=== PATIENT | female | born 1945 | race Caucasian/White ===

== ENCOUNTER 2016-06-29 09:45 | Outpatient (CLI) | payer MEDICARE | END 2016-06-29 09:46 | disposition home or self-care (01) | DX: C50.912 Malignant neoplasm of unspecified site of left female breast (principal) ==

== ENCOUNTER 2016-09-01 10:31 | Outpatient (CLI) | payer MEDICARE | END 2016-09-01 10:32 | disposition home or self-care (01) | DX: E03.9 Hypothyroidism, unspecified (principal) ==

== ENCOUNTER 2017-03-22 07:18 | Outpatient (CLI) | payer MEDICARE ==
[2017-03-22 11:39] LABS: ALBUMIN/GLOBULIN RATIO 1.3 (1.0-2.2); BILIRUBIN,TOTAL 0.7 mg/dL (0.2-1.0); BUN - BLOOD UREA NITROGEN 22 mg/dL (6-20); CALCIUM 9.2 mg/dL (8.5-10.3); CARBON DIOXIDE - CO2 29 mmol/L (21-32); CHLORIDE 100 mmol/L (101-111); CHOL/HDL RATIO 4.2 (<4.4); CHOLESTEROL 209 mg/dL; CREATININE 0.9 mg/dL (0.4-1.0); GFR - MDRD 62 (>89); GLUCOSE 85 mg/dL (70-100); HDL CHOLESTEROL 50 mg/dL; LDL/HDL RATIO 2.7 (<4.4); POTASSIUM 3.4 mmol/L (3.5-5.0); SODIUM 138 mmol/L (135-145); TRIGLYCERIDES 116 mg/dL; VLDL CHOLESTEROL 23 mg/dL
== END 2017-03-22 07:19 | disposition home or self-care (01) ==
LOC: LAB.F 07:18
PROVIDERS: ATTEND Family Medicine
DX: E78.5 Hyperlipidemia, unspecified (principal); I10 Essential (primary) hypertension; E03.9 Hypothyroidism, unspecified
CPT/HCPCS: 36415; 80053; 80061; 84443

== ENCOUNTER 2017-07-12 10:30 | Outpatient (CLI) | payer MEDICARE ==
--- NOTE | 2017-07-13 08:39 | Mammography Report ---
DIGITAL DIAGNOSTIC BILATERAL MAMMOGRAM: 07/12/2017 CLINICAL HISTORY: History of left breast cancer. COMPARISON: 06/2016, 06/2015, 12/2014, 05/2014, 08/2013, 06/2013, 01/2011. TECHNIQUE: Bilateral CC, MLO, true lateral views, right spot compression views. FINDINGS: The breasts again demonstrate scattered fibroglandular densities bilaterally. Postoperative and posttreatment changes in the left breast are stable. Coarse and punctate, typically benign calcifications are present. In the right upper inner posterior breast, there is a nodule, which persists on spot compression views, measuring 1 cm. Further evaluation with right breast ultrasound is recommended. Due to scheduling limitations, ultrasound was not performed the same day. Ultrasound is scheduled for 07/19/2017 at 11:15 a.m. IMPRESSION: INCOMPLETE EXAMINATION. RECOMMENDATION: Right breast ultrasound, scheduled for 07/19/2017 at 11:15 a.m. BIRADS category 0 - INCOMPLETE. STANDARD QUALIFYING STATEMENTS 1. This examination was reviewed with the aid of Computed-Aided Detection (CAD) . 2. A negative or benign imaging report should not delay biopsy if clinically suspicious findings are present. Consider surgical consultation if warranted. More than 5 % of cancers are not identified by imaging. 3. Dense breasts may obscure an underlying neoplasm. TD: 07/12/2017 17:10 LILO
== END 2017-07-12 10:31 | disposition home or self-care (01) ==
LOC: DI 10:30
PROVIDERS: ATTEND Internal Medicine Hematology & Oncology
DX: N63.12 Unspecified lump in the right breast, upper inner quadrant (principal)
CPT/HCPCS: 77066

== ENCOUNTER 2017-08-21 09:12 | Outpatient (CLI) | payer MEDICARE ==
--- NOTE | 2017-08-21 12:52 | Ultrasound Report ---
ULTRASOUND GUIDED CORE NEEDLE BIOPSY: 08/21/2017 CLINICAL INDICATION: Right breast nodule. TECHNIQUE: Hypoechoic 0.8 x 0.7 x 0.7 cm nodule right upper inner quadrant. FINDINGS: Informed consent was obtained. Using standard aseptic technique, both 1% buffered lidocaine and Sensorcaine were injected into the right breast for local anesthesia. A small jeffry was made in the skin with a #11 blade. A 12-gauge Celero vacuum-assisted device was used to obtain 3 specimens. A Celero marker was placed into the biopsy cavity under ultrasound guidance. The patient was taken to a separate mammography machine and a two view digital mammogram was performed, documenting the marker in the expected location and no significant postbiopsy hematoma. The wound was dressed and ice applied. The patient was observed for approximately 15 minutes, then was discharged from [facility] in good condition following instructions on wound care and obtaining biopsy results. The tissue was sent for histologic analysis. IMPRESSION: ULTRASOUND-GUIDED BIOPSY OF THE RIGHT BREAST. An addendum will be made to this report when the pathology is reviewed to establish concordance. TD: 08/21/2017 12:51
[2017-08-21] MEDS ORDERED: BUPIVACAINE 0.5%-EPI 1:200000 PF 10 ML VIAL SUBQ ONE (14:23)
[2017-08-21] MEDS ORDERED: LIDOCAINE 1% 10 ML MDV SUBQ ONE (14:23)
== END 2017-08-21 09:13 | disposition home or self-care (01) ==
LOC: DI 09:12
PROVIDERS: ATTEND Internal Medicine Hematology & Oncology
DX: C50.211 Malignant neoplasm of upper-inner quadrant of right female breast (principal); Z17.0 Estrogen receptor positive status [ER+]
CPT/HCPCS: 19083

== ENCOUNTER 2017-09-20 09:53 | Outpatient (CLI) | payer MEDICARE ==
[2017-09-20] MEDS ORDERED: GADOBUTROL 10 MMOL/10 ML SYRINGE ONE (10:34)
[2017-09-20] MEDS ORDERED: GADOBUTROL 10 MMOL/10 ML SYRINGE IVP ONE (11:13)
--- NOTE | 2017-09-20 15:03 | MRI Report ---
MRI BILATERAL BREASTS WITH AND WITHOUT CONTRAST: 09/20/2017 CLINICAL INDICATION: History of left breast cancer, status post lumpectomy, new right breast cancer. COMPARISON: MRI 07/21/2013, ultrasound 07/19/2017, diagnostic mammogram 2017. TECHNIQUE: Using a dedicated breast coil, axial precontrast STIR, T1, dynamic postcontrast axial 3-D images, axial 3-D high resolution images, and postcontrast diffusion weighted images were obtained. 8 mL of Gadavist was administered intravenously. Post- processing with dynamic contrast enhancement analysis and multiplanar reformations were performed with [employer]. FINDINGS: The breasts demonstrate no background parenchymal enhancement. RIGHT BREAST: The biopsy-proven cancer in the right inner posterior breast is seen, with biopsy marker in place. The focus of enhancement measures 1.6 x 1.0 x 0.6 cm. The enhancement demonstrates rapid uptake with plateau. The right axillary lymph nodes are morphologically normal. No skin, nipple, or chest wall involvement is seen. No multifocal or multicentric disease. LEFT: Postoperative changes are seen in the left breast and axilla. No suspicious mass or architectural distortion is identified. No abnormal enhancement is present. IMPRESSION: 1. BIOPSY-PROVEN RIGHT BREAST CANCER, MEASURING 1.6 CM MAXIMAL DIAMETER ON MRI. NO EVIDENCE OF MULTICENTRIC OR MULTIFOCAL DISEASE. MORPHOLOGICALLY NORMAL RIGHT AXILLARY LYMPH NODES. NO SKIN, CHEST WALL, OR NIPPLE INVOLVEMENT IS APPRECIATED. 2. POSTOPERATIVE CHANGES IN THE LEFT BREAST AND AXILLA. RECOMMENDATION: Surgical treatment planning. BIRADS CATEGORY 6 - KNOWN MALIGNANCY. The patient has been instructed to obtain results from Dr. Pittman in 5 business days. COMMENT: Breast MRI is a highly sensitive examination, and has a cancer detection threshold down to approximately 5 mm; however, it only has moderate specificity. Although breast MRI has a high negative predictive value, appropriate clinical and mammographic followup are always necessary. MRI may miss less angiogenic tumors; therefore, it should not be used to avoid a biopsy which is otherwise clinically indicated. Normal appearing lymph nodes may contain microscopic tumor. Due to prone positioning, the described location of findings may differ from other modalities. TD: 09/20/2017 15:02 [facility]
== END 2017-09-20 09:54 | disposition home or self-care (01) ==
LOC: DI 09:53
PROVIDERS: ATTEND Internal Medicine Hematology & Oncology
DX: C50.911 Malignant neoplasm of unspecified site of right female breast (principal)
CPT/HCPCS: A9585; C8908; 77059

== ENCOUNTER 2017-10-16 08:15 | Day surgery (SDC) | payer MEDICARE ==
[~2017-10-16 08:15] MED LIST: BUPIVACAINE 0.5%-EPI 1:200000 PF 30 ML VIAL ONE
[2017-10-16] MEDS ORDERED: ceFAZolin 2 GM/50 ML 2 GM/50 ML BAG IV ONE (09:18)
[2017-10-16] MEDS ORDERED: SCOPOLAMINE PATCH TOP ONE (09:19)
[2017-10-16] MEDS ORDERED: LACTATED RINGERS 1,000 ML IV ONE ×2 (10:31→16:02)
[2017-10-16] MEDS ORDERED: BUPIVACAINE 0.5% PF 30 ML VIAL ONE (13:14)
[2017-10-16] MEDS ORDERED: BUPIVACAINE 0.5% PF 30 ML VIAL INFIL ONE (14:30)
[2017-10-16] MEDS ORDERED: ONDANSETRON 4 MG/2 ML VIAL IVP ONE (15:11)
[2017-10-16] MEDS ORDERED: fentaNYL 100 MCG/2 ML VIAL IVP ONE (15:11)
[2017-10-16] MEDS ORDERED: GLYCOPYRROLATE 1 MG/5 ML VIAL IVP ONE (15:11)
[2017-10-16] MEDS ORDERED: PROPOFOL 200 MG/20 ML VIAL IVP ONE (15:11)
[2017-10-16] MEDS ORDERED: DEXAMETHASONE 4 MG/ML VIAL IVP ONE (15:11)
--- NOTE | 2017-10-16 16:23 | OPERATIVE REPORT ---
Operative Report - General Procedure Date: 10/16/17 Planned Procedure: RIGHT lumpectomy with preoperative needle localization and RIGHT axillary s Pre-Op Diagnosis: RIGHT breast cancer Procedure Performed: RIGHT lumpectomy with preoperative needle localization and RIGHT axillary sentinel lymph node biopsy Post Op Diagnosis: RIGHT breast cancer - Procedure Note Primary Surgeon: Jeffrey Wrigth MD Anesthesia Provider: Nancie Hassan CRNA Anesthesia Technique: General ET tube, Local (30 mL 1/2% marcaine) IV Fluids (mL): 800 Estimated Blood Loss (mL): 50 Complications: None. - Other Other Information/Narrative: OPERATIVE DESCRIPTION/REPORT: After verbal and written informed consent was obtained detailing the risks of infection, bleeding requiring transfusion with its risks, nerve injury, and , and after I met with the patient confirming the surgery and the site of the surgery, the patient was brought to the operative suite and placed supine on the operating table. I did not initial the operative site since it was defined by the localization wire. Great care was taken to avoid pressure points to prevent pressure necrosis or nerve injury. Monitoring devices were applied along with TEDs and pneumatic compressive stockings (to prevent DVT). The patient received preoperative antibiotics for surgical prophylaxis. Nancie Hassan sedated and anesthetized the patient for the entire procedure. The patient was prepped and draped in the usual sterile manner. A "time in" then confirmed that the patient was identified with 3 identifiers (name, date and medical record number), the history and physical was in the chart, the signed consent confirming the procedure was in the chart, the patient was in the correct position, the aforementioned prophylactic measures were in place or given, we had the correct personnel and equipment to complete the procedure and that anesthesia, surgery and nursing were given an opportunity to express any concerns. With the agreement of everyone in the room, we proceeded with the operation. After anesthetizing the skin with 1/2% Marcaine, a transverse incision was made at the inferior axillary hairline. Dissection using a combination of Bovie electrocautery and Metzenbaum scissors was used to dissect down to the fascia and open the fascia overlying axilla proper. Guidance was provided with the gamma probe. Gentle dissection using traction and counter-traction with Schnitz demonstrated the sentinel node clearly. The in vivo 10 second count was 7688. Traction and counter-traction allowed the lymph node to be removed without disrupting the capsule. Unfortunately with the removal there was still tissue inferior to this that was just as "hot." This was similarly excised and now the ex vivo count of both specimens was 6842. Examination of the axilla with the probe did not reveal any area that was even remotely as "hot" as the sentinel lymph node that had been removed. Consequently, the sentinel lymph node was sent to pathology. Copious water lavage was used to remove any debris , and hemostasis was obtained with Bovie electrocautery. The subcutaneous tissue was approximated using an interrupted 2-0 Vicryl and the skin incision was approximated with 4-0 Monocryl in a running subcuticular manner. Attention was directed to the breast lesion. After the skin overlying the needle/wire tip was anesthetized using % Marcaine, the skin overlying the tip of the needle was incised in a curvilinear fashion. Dissection down to the needle tip was performed using a combination of Metzenbaum scissors and Bovie electrocautery. Every attempt was made to get approximately 1 cm of normal tissue around the lesion. The wire was released and the lesion having been excised were removed from the wound and sent to radiology for confirmation of excision. The specimen was marked with a long stitch laterally, a short stitch superiorly, and a double stitch deep. As the specimen was being placed in the transport cannister the deep stitch was dislodged and I replaced this stitch orienting the specimen as best as I could. Meticulous hemostasis was obtained using Bovie electrocautery. Once radiology called and confirmed complete excision of the mass, the subcutaneous tissue were approximated using a 3-0 Vicryl in an interrupted manner, and the skin incision was approximated with 4- 0 Monocryl in a subcuticular fashion. Both incisions and both subcutaneous areas were again injected with 1/2% Marcaine. The prep was washed off and benzoin and steristrips were placed on the incision. At this point a time out was performed that confirmed that all the counts were correct, the procedure that was performed, the blood loss, the urine output, the IV fluids administered, and the patients condition. Dressings were applied. Having tolerated the procedure well, the patient was subsequently extubated and taken to recovery room in good and stable condition. [employer] disclaimer: This document was created in part using voice recognition technology. Because of the inherent limitations of the system ([employer]'s Dragon Dictate user manual states that the licensee understands that speech recognition is a statistical process and that recognition errors are inherent in the process), occasional same sounding word substitutions and grammatical errors do occur and persist despite proofreading. Please read this document for context.
[2017-10-16 17:52] VITALS: BP 146/75
== END 2017-10-16 08:16 | disposition home or self-care (01) ==
LOC: SDS 08:15
PROVIDERS: ATTEND Surgery
PROC: 07B50ZX Excision of Right Axillary Lymphatic, Open Approach, Diagnostic (ICD-10-PCS; 2017-10-16)
PROC: 0HBT0ZZ Excision of Right Breast, Open Approach (ICD-10-PCS; principal; 2017-10-16 14:47)
DX: C50.911 Malignant neoplasm of unspecified site of right female breast (principal); Z17.0 Estrogen receptor positive status [ER+]; Z79.82 Long term (current) use of aspirin; I10 Essential (primary) hypertension
CPT/HCPCS: 19281; 19301; 38500; 76098; 78195; A9541; J0690; J3490; J7120; 88307

== ENCOUNTER 2017-10-16 09:27 | Outpatient (CLI) | payer MEDICARE ==
--- NOTE | 2017-10-16 11:00 | Nuclear Medicine Report ---
RIGHT BREAST INJECTION FOR SENTINEL LYMPH NODE IDENTIFICATION: 10/16/2017 CLINICAL INDICATION: Right breast cancer. FINDINGS: 1.3 mCi of technetium-99m filtered sulfur colloid in buffered lidocaine was injected subareolarly into the right breast. Anterior imaging confirms right axillary uptake. IMPRESSION: SUCCESSFUL RIGHT BREAST INJECTION FOR SENTINEL LYMPH NODE IDENTIFICATION. TD: 10/16/2017 10:29
[2017-10-16] MEDS ORDERED: BUPIVACAINE 0.5%-EPI 1:200000 PF 30 ML VIAL SUBQ ONE ×2 (16:09)
[2017-10-16] MEDS ORDERED: BUFFERED LIDOCAINE 10 ML SYRINGE IU ONE ×2 (16:09)
--- NOTE | 2017-10-16 17:54 | Mammography Report ---
REVISED: REPORT ORIG. SIGNED ON 10/17/2017@0846; ORDERS LINKED ON 2017jll RIGHT BREAST WIRE LOCALIZATION WITH MAMMOGRAPHIC GUIDANCE: 10/16/2017 CLINICAL INDICATION: Biopsy proven right breast cancer at the 3 o'clock position. FINDINGS: Informed consent was obtained. Using standard aseptic technique, both 1% buffered lidocaine and Sensorcaine were injected into the right breast for local anesthesia. Under mammographic guidance, a 5 cm [place] wire was placed at the site of concern. Two mammographic views were obtained to confirm the position of the wire in relation to the target lesion. The wire was secured, and the patient was sent to the operating room in stable condition. Specimen radiograph: A magnified view of the breast biopsy specimen demonstrates that the lesion, biopsy marker, and wire are included, with the marker at G6. Dr. Wright was informed by telephone. IMPRESSION: RIGHT MAMMOGRAPHICALLY GUIDED WIRE LOCALIZATION. PATHOLOGY RESULTS PENDING AT THIS TIME. TD: 10/16/2017 16:08 LILO
== END 2017-10-16 09:28 | disposition home or self-care (01) ==
LOC: DI 09:27 → SDS 09:28
PROVIDERS: ATTEND Surgery
DX: C50.911 Malignant neoplasm of unspecified site of right female breast (principal)
CPT/HCPCS: 19281; 76098; 78195; A9541

== ENCOUNTER 2017-12-28 07:40 | Outpatient (CLI) | payer MEDICARE ==
[2017-12-28 11:43] LABS: BILIRUBIN,URINE NEGATIVE (NEGATIVE); GLUCOSE, URINE (UA) NEGATIVE (NEGATIVE); KETONES,URINE (UA) NEGATIVE (NEGATIVE); LEUKOCYTE ESTERASE, URINE NEGATIVE (NEGATIVE); NITRITE,URINE NEGATIVE (NEGATIVE); OCCULT BLOOD,URINE NEGATIVE (NEGATIVE); PH,URINE 6.5 PH (5.0-7.5); PROTEIN,URINE NEGATIVE (NEGATIVE); UROBILINOGEN,URINE 0.2 (NORMAL) E.U./dL (NORMAL)
[2017-12-28 11:59] LABS: BACTERIA,URINE None Seen /HPF (None Seen); CLARITY,URINE CLEAR (CLEAR); RBC,URINE 0-5 /HPF (0-5); SQUAMOUS EPITHELIAL CELL,UR RARE Squamous (<= Few)
[2017-12-28 12:00] LABS: ALBUMIN 3.7 g/dL (3.2-5.5); ALBUMIN/GLOBULIN RATIO 1.1 (1.0-2.2); ALKALINE PHOSPHATASE 65 IU/L (42-121); ALT ALANINE AMINOTRANSFERASE 18 IU/L (10-60); AST ASPARTATE AMINOTRANSFERASE 20 IU/L (10-42); BILIRUBIN,TOTAL 0.7 mg/dL (0.2-1.0); BUN - BLOOD UREA NITROGEN 16 mg/dL (6-20); CALCIUM 9.1 mg/dL (8.5-10.3); CARBON DIOXIDE - CO2 29 mmol/L (21-32); CHLORIDE 101 mmol/L (101-111); CHOL/HDL RATIO 3.9 (<4.4); CHOLESTEROL 208 mg/dL; CREATININE 0.7 mg/dL (0.4-1.0); GFR - MDRD 82 (>89); GLUCOSE 85 mg/dL (70-100); HDL CHOLESTEROL 54 mg/dL; LDL CHOLESTEROL,CALCULATED 137 mg/dL; LDL/HDL RATIO 2.5 (<4.4); SODIUM 139 mmol/L (135-145); VLDL CHOLESTEROL 17 mg/dL
== END 2017-12-28 07:41 | disposition home or self-care (01) ==
LOC: LAB.F 07:40
PROVIDERS: ATTEND Family Medicine
DX: E78.5 Hyperlipidemia, unspecified (principal); M81.0 Age-related osteoporosis without current pathological fracture; I10 Essential (primary) hypertension; E03.9 Hypothyroidism, unspecified
CPT/HCPCS: 36415; 80053; 80061; 81001; 83721; 84443

== ENCOUNTER 2018-08-13 09:46 | Outpatient (CLI) | payer MEDICARE ==
--- NOTE | 2018-08-13 11:01 | Mammography Report ---
Reason: L BREAST CANCER Procedure Date: 08/13/2018 Accession Number: [id number] / [id number] Procedure: LOGAN - Diagnostic Dig Bilat CPT Code: FULL RESULT: EXAM: Diagnostic Dig Bilat DATE: 08/13/2018 10:50 AM CLINICAL HISTORY: History of treated bilateral breast cancer the left in 2012 the right in 2017. No reported family history of breast cancer. Post lumpectomy surveillance protocol. TECHNIQUE: Bilateral CC and MLO views were obtained. Full field lateral views bilaterally. Bilateral spot compression and magnification lumpectomy sites. COMPARISON: 10/16/2017 through 12/29/2014 FINDINGS: The breasts demonstrate scattered fibroglandular densities bilaterally. The exam is mildly technically limited due to patient and tissue mobility limitations. Best possible imaging was obtained. Right breast: There are stable expected changes status post lumpectomy from the medial breast. There is anterior skin thickening and mild trabecular thickening consistent with post treatment changes. No suspicious masses, calcifications or areas of nonoperative distortion. Left breast: There are stable operative changes status post posterior medial lumpectomy. The entirety of the operative bed cannot be included mammographically due to positioning. There are no suspicious masses, calcifications or areas of nonoperative distortion. IMPRESSION: Right breast: Stable expected post lumpectomy changes under surveillance protocol. Benign. BI-RADS Category 2. Recommend diagnostic surveillance mammogram in 6 months per post lumpectomy protocol. Left breast: Stable post lumpectomy changes completing surveillance protocol. Benign. BI-RADS Category 2. Recommend return to annual screening mammography. BI-RADS CATEGORY 2: Benign findings STANDARD QUALIFYING STATEMENTS: 1. This examination was not reviewed with the aid of Computer-Aided Detection (CAD). 2. A negative or benign imaging report should not preclude biopsy if clinically suspicious findings are present. 3. Dense breasts may obscure an underlying neoplasm. 4. This examination was reviewed with the aid of 3D breast imaging (tomosynthesis).
== END 2018-08-13 09:47 | disposition home or self-care (01) ==
LOC: DI 09:46
PROVIDERS: ATTEND Internal Medicine Hematology & Oncology
DX: C50.912 Malignant neoplasm of unspecified site of left female breast (principal)
CPT/HCPCS: 77066

== ENCOUNTER 2019-01-01 11:44 | Outpatient (CLI) | payer MEDICARE ==
[2019-01-01 17:47] LABS: BASOPHILS # (AUTO) 0.1 10^3/uL (0.0-0.1); BASOPHILS % (AUTO) 0.7 %; EOSINOPHILS # (AUTO) 0.6 10^3/uL (0.0-0.7); EOSINOPHILS % (AUTO) 4.8 %; HGB - HEMOGLOBIN 14.5 g/dL (12.0-16.0); LYMPHOCYTES # (AUTO) 2.9 10^3/uL (1.5-3.5); LYMPHOCYTES % (AUTO) 23.5 %; MEAN CORPUSCULAR HEMOGLOBIN 29.5 pg (27.0-31.0); MEAN CORPUSCULAR HGB CONC 33.8 g/dL (32.0-36.0); MEAN CORPUSCULAR VOLUME 87.4 fL (81.0-99.0); MEAN PLATELET VOLUME 9.5 fL (7.9-10.8); MONOCYTES # (AUTO) 0.7 10^3/uL (0.0-1.0); MONOCYTES % (AUTO) 5.4 %; NEUTROPHILS % (AUTO) 65.2 %; PLT - PLATELET COUNT 304 10^3/uL (130-450); RED BLOOD COUNT 4.91 10^6/uL (4.20-5.40); RED CELL DISTRIBUTION WIDTH 13.2 % (12.0-15.0); WHITE BLOOD COUNT 12.3 x10^3/uL (4.8-10.8)
[2019-01-01 18:11] LABS: ALBUMIN 4.2 g/dL (3.2-5.5); ALBUMIN/GLOBULIN RATIO 1.3 (1.0-2.2); ALKALINE PHOSPHATASE 71 IU/L (42-121); ALT ALANINE AMINOTRANSFERASE 19 IU/L (10-60); AST ASPARTATE AMINOTRANSFERASE 21 IU/L (10-42); BILIRUBIN,TOTAL 0.8 mg/dL (0.2-1.0); BUN - BLOOD UREA NITROGEN 19 mg/dL (6-20); CALCIUM 9.7 mg/dL (8.5-10.3); CARBON DIOXIDE - CO2 28 mmol/L (21-32); CHLORIDE 102 mmol/L (101-111); CHOL/HDL RATIO 4.4 (<4.4); CHOLESTEROL 215 mg/dL; CREATININE 0.7 mg/dL (0.4-1.0); GFR - MDRD 82 (>89); GLUCOSE 89 mg/dL (70-100); HDL CHOLESTEROL 49 mg/dL; LDL CHOLESTEROL,CALCULATED 142 mg/dL; LDL/HDL RATIO 2.9 (<4.4); SODIUM 140 mmol/L (135-145); TOTAL PROTEIN 7.4 g/dL (6.7-8.2); VLDL CHOLESTEROL 24 mg/dL
== END 2019-01-01 11:45 | disposition home or self-care (01) ==
LOC: LAB.S 11:44
PROVIDERS: ATTEND Physician Assistant Medical
DX: E78.5 Hyperlipidemia, unspecified (principal); E03.9 Hypothyroidism, unspecified; I10 Essential (primary) hypertension; B35.4 Tinea corporis; L98.9 Disorder of the skin and subcutaneous tissue, unspecified
CPT/HCPCS: 36415; 80053; 80061; 83721; 84443; 85025

== ENCOUNTER 2019-01-14 09:49 | Outpatient (CLI) | payer MEDICARE ==
--- NOTE | 2019-01-15 08:34 | DEXA Report ---
Reason: POST MENOPAUSAL Procedure Date: 01/14/2019 Accession Number: [id number] / [id number] Procedure: DEX - Dexa Spine and/or Hip CPT Code: FULL RESULT: EXAM: Dexa Spine and/or Hip DATE: 01/14/2019 10:30 AM CLINICAL HISTORY: POST MENOPAUSAL TECHNIQUE: Dual energy x-ray absorptiometry (DXA) was performed on a WUT System. Regions measured are the AP Spine, femoral neck, and if needed forearm. COMPARISON: 12/26/2017. In accordance with the International Society for Clinical Densitometry (ISCD) guidelines, data from previous exams may be reanalyzed using current recommendations and techniques. This is done to allow a more accurate basis for comparison with the current study. FINDINGS: The data for the lumbar spine is as follows: BMD (g/cm/cm) T-SCORE Z-SCORE REGION L1 0.973 -1.3 0.2 L2 1.089 -0.9 0.6 L3 0.975 -1.9 -0.4 L4 0.926 -2.3 -0.8 TOTAL 0.986 -1.6 -0.1 NOTE: All evaluable vertebrae are used for classification The data for the hip is as follows: BMD (g/cm/cm) T-SCORE Z-SCORE REGION Neck 1.120 0.6 2.3 TOTAL 1.085 0.6 2.1 NOTE: The femoral neck or total proximal femur, whichever is lowest, is used for classification. DXA RESULTS SUMMARY: Spine SCAN DATE A[age] BMD CHANGE VS CHANGE VS PREVIOUS PREVIOUS % 01[age]14/2019 [age] 0.89 0.048* 5.1* 12/26/2017 [age] 0[age]938 * Denotes significant change at the 95% confidence level. Denotes dissimilar scan types or analysis methods. DXA RESULTS SUMMARY: Hip SCAN DATE [age]GE BMD CHANGE VS CHANGE VS PREVIOUS PREVIOUS % [birth year][age][birth year]/2019 [age] 1.085 0.004 0.4 12/26[birth year]2017 [age] 1.081 * Denotes significant change at the 95% confidence level. Denotes dissimilar scan types or analysis methods. IMPRESSION: THE WHO CLASSIFICATION BASED ON THE INTERNATIONAL REFERENCE STANDARD IS OSTEOPENIA. THE FRACTURE RISK IS INCREASED. RECOMMENDATION: Patients with diagnosis of osteoporosis or osteopenia should have regular bone mineral density assessment. For those eligible for Medicare, routine testing is allowed once every 2 years. Testing frequency can be increased for patients who have rapidly progressing disease or for those who are receiving medical therapy to restore bone mass. COMMENT: World Health Organization (WHO) definitions for osteoporosis and osteopenia: NORMAL BMD: T-score at -1.0 or higher, fracture risk is low OSTEOPENIA BMD: T-score between -1.0 and -2.5, fracture risk is increased. OSTEOPOROSIS BMD: T-score at -2.5 or lower, fracture risk is high. National Osteoporosis Foundation recommends: 1. Obtain adequate dietary calcium (at least 1200 mg per day) and vitamin D (400-800 international units per day). 2. Participate, as appropriate, in regular weightbearing and muscle-strengthening exercise. 3. Avoid tobacco use and reduce alcohol and caffeine intake. 4. For more detailed information see the website at www.NOF.org.
== END 2019-01-14 09:50 | disposition home or self-care (01) ==
LOC: DI 09:49
DX: M85.88 Other specified disorders of bone density and structure, other site (principal)
CPT/HCPCS: 77080

== ENCOUNTER 2019-01-14 09:50 | Outpatient (CLI) | payer MEDICARE ==
--- NOTE | 2019-01-14 16:07 | Mammography Report ---
Reason: RT BREAST CA Procedure Date: 01/14/2019 Accession Number: [id number] / [id number] Procedure: LOGAN - Diagnostic Dig RT CPT Code: FULL RESULT: EXAM: Diagnostic Dig RT DATE: 01/14/2019 11:04 AM CLINICAL HISTORY: Diagnostic examination. History of right and left breast cancer status post lumpectomy in October 2017 and left breast lumpectomy in 2013. TECHNIQUE: (R) - Right CC and MLO views were obtained. Right spot CC, cleavage, right spot MLO, right ML and right spot ML images are obtained. COMPARISON: 08/13/2018 through 12/21/2014. PARENCHYMAL PATTERN: (A) - The breast(s) demonstrate(s) scattered fibroglandular densities. FINDINGS: Postlumpectomy changes are again seen in the right breast, the site of the previous cancer is again not fully included in the [id number] despite best attempts, likely due to postsurgical configuration. Skin thickening appears essentially unchanged. There are no suspicious masses, calcifications, or areas of distortion. IMPRESSION: Probably Benign. BI-RADS category 3. RECOMMENDATION: (6MOS) - Recommend 6 month follow-up exam. BI-RADS CATEGORY: (3) - Probably Benign. STANDARD QUALIFYING STATEMENTS: 1. This examination was not reviewed with the aid of Computer-Aided Detection (CAD). 2. A negative or benign imaging report should not preclude biopsy if clinically suspicious findings are present. 3. Dense breasts may obscure an underlying neoplasm. 4. This examination was reviewed with the aid of 3D breast imaging (tomosynthesis).
== END 2019-01-14 09:51 | disposition home or self-care (01) ==
LOC: DI 09:50
DX: C50.911 Malignant neoplasm of unspecified site of right female breast (principal); M85.88 Other specified disorders of bone density and structure, other site; Z78.0 Asymptomatic menopausal state
CPT/HCPCS: 77065; 77080; G0279

== ENCOUNTER 2019-01-31 08:00 | Outpatient (CLI) | payer MEDICARE | END 2019-01-31 23:59 | disposition home or self-care (01) | LOC: LAB.R 08:00 | PROVIDERS: ATTEND Physician Assistant Medical | DX: D72.829 Elevated white blood cell count, unspecified (principal) | CPT/HCPCS: 87086 ==

== ENCOUNTER 2019-04-03 13:13 | Outpatient (CLI) | payer MEDICARE ==
[2019-04-03 17:39] LABS: BASOPHILS # (AUTO) 0.1 10^3/uL (0.0-0.1); BASOPHILS % (AUTO) 0.7 %; EOSINOPHILS # (AUTO) 0.5 10^3/uL (0.0-0.7); EOSINOPHILS % (AUTO) 3.5 %; HGB - HEMOGLOBIN 14.6 g/dL (12.0-16.0); LYMPHOCYTES # (AUTO) 3.8 10^3/uL (1.5-3.5); LYMPHOCYTES % (AUTO) 26.1 %; MEAN CORPUSCULAR HEMOGLOBIN 29.5 pg (27.0-31.0); MEAN CORPUSCULAR HGB CONC 33.8 g/dL (32.0-36.0); MEAN CORPUSCULAR VOLUME 87.3 fL (81.0-99.0); MEAN PLATELET VOLUME 9.5 fL (7.9-10.8); MONOCYTES # (AUTO) 0.7 10^3/uL (0.0-1.0); NEUTROPHILS # (AUTO) 9.4 10^3/uL (1.5-6.6); NEUTROPHILS % (AUTO) 64.1 %; PLT - PLATELET COUNT 352 10^3/uL (130-450); RED BLOOD COUNT 4.95 10^6/uL (4.20-5.40); RED CELL DISTRIBUTION WIDTH 13.5 % (12.0-15.0); WHITE BLOOD COUNT 14.6 x10^3/uL (4.8-10.8)
== END 2019-04-03 13:14 | disposition home or self-care (01) ==
LOC: LAB.S 13:13
PROVIDERS: ATTEND Physician Assistant Medical
DX: D72.829 Elevated white blood cell count, unspecified (principal)
CPT/HCPCS: 36415; 85025

== ENCOUNTER 2019-11-03 10:16 | Outpatient (CLI) | payer MEDICARE ==
--- NOTE | 2019-11-03 14:17 | Mammography Report ---
BILATERAL DIGITAL DIAGNOSTIC MAMMOGRAM 3D/2D WITH CAD: 11/03/2019 CLINICAL: Patient returns for a 6 month follow up of bilateral breasts. Patient returns for a 6 month follow up of the left breast, due for bilateral imaging. Prior mammograms: Right diagnostic 01/14/2019, Bilateral diagnostic 08/13/2018, Right diagnostic 018, Bilateral screening 07/12/2017. There are scattered fibroglandular elements in both breasts. Current study was also evaluated with a Computer Aided Detection (CAD) system. No significant masses, calcifications, or other findings are seen in either breast. Stable post-opera tive changes in both breasts. IMPRESSION: PROBABLY BENIGN No significant masses, calcifications, or other findings are seen in either breast. A follow-up right breast mammogram in 6 months is recommended per post-lumpectomy protocol. This exam was interpreted at Station ID: [id number]. NOTE: For mammograms, a report in lay terms will be sent to the patient. Approximately 15% of breast malignancies will not be visualized mammographically. In the management of a palpable breast mass, a negative mammogram must not discourage biopsy of a clinically suspicious lesion. Exam findings conveyed to the patient. Electronically Signed By: Abdelrahman Guevara M.D. slc/:11/03/2019 12:17:10 ACR BI-RADS Category 3: Probably benign 3343F PARENCHYMAL PATTERN: (A) - The breast(s) demonstrate(s) scattered fibroglandular densities. BI-RADS CATEGORY: (3) - 3 Mammogram [id number] 6 month follow-up B
== END 2019-11-03 10:17 | disposition home or self-care (01) ==
LOC: DI 10:16
PROVIDERS: ATTEND Physician Assistant
DX: C50.911 Malignant neoplasm of unspecified site of right female breast (principal)
CPT/HCPCS: 77066

== ENCOUNTER 2020-02-25 08:30 | Outpatient (CLI) | payer MEDICARE ==
[2020-02-25 15:53] LABS: CHOL/HDL RATIO 3.8 (<4.4); CHOLESTEROL 195 mg/dL; HDL CHOLESTEROL 52 mg/dL; LDL CHOLESTEROL,CALCULATED 122 mg/dL; LDL/HDL RATIO 2.3 (<4.4); VLDL CHOLESTEROL 21 mg/dL
== END 2020-02-25 08:31 | disposition home or self-care (01) ==
LOC: LAB.S 08:30
PROVIDERS: ATTEND Registered Nurse
DX: E03.9 Hypothyroidism, unspecified (principal); D72.829 Elevated white blood cell count, unspecified
CPT/HCPCS: 36415; 80061; 83721; 84443

== ENCOUNTER 2020-06-17 10:06 | Outpatient (CLI) | payer MEDICARE ==
--- NOTE | 2020-06-18 07:41 | Mammography Report ---
UNILATERAL RIGHT DIGITAL DIAGNOSTIC MAMMOGRAM 3D/2D: 06/17/2020 CLINICAL: Post right lumpectomy and radiation therapy. Comparison is made to exams dated: 01/14/2019 mammogram, 08/13/2018 mammogram, 08/21/2017 mammogram, an d 07/22/2017 mammogram - [facility]. There are scattered fibroglandular elements in right breast. No significant masses, calcifications, or other findings are seen in the breast. There has been no significant interval change. IMPRESSION: NEGATIVE There is no mammographic evidence of malignancy. Annual bilateral mammogram which is due in 6 months is recommended. This exam was interpreted at Station ID: [id number]. NOTE: For mammograms, a report in lay terms will be sent to the patient. Approximately 15% of breast malignancies will not be visualized mammographically. In the management of a palpable breast mass, a negative mammogram must not discourage biopsy of a clinically suspicious lesion. Electronically Signed By: Gamaliel Montague acr/:06/17/2020 12:01:36 ACR BI-RADS Category 1: Negative 3341F PARENCHYMAL PATTERN: (A) - The breast(s) demonstrate(s) scattered fibroglandular densities. BI-RADS CATEGORY: (1) - 1 RECOMMENDATION: (ANNUAL) - Recommend routine annual screening mammography. [id number] 1 year screening LATERALITY: (B)
== END 2020-06-17 10:07 | disposition home or self-care (01) ==
LOC: DI 10:06
PROVIDERS: ATTEND Internal Medicine Hematology & Oncology
DX: Z08 Encounter for follow-up examination after completed treatment for malignant neoplasm (principal); Z85.3 Personal history of malignant neoplasm of breast